=== PATIENT | male | born 1960 | race Caucasian/White ===

== ENCOUNTER 2023-01-17 12:13 | Observation (INO) | payer SELFPAY ==
[2023-01-17 12:41] LABS: #Eosinphils 0.1 thou/uL (0.0-0.7); #Lymphocytes 1.5 thou/uL (1.20-3.40); #Monocytes 0.5 thou/uL (0.11-0.59); #Neutrophils 8.5 thou/uL (1.40-6.50); %Basophils 0.4 % (0.0-1.0); %Eosinophils 0.8 % (0.0-10.0); %Lymphocytes 14.5 % (21.0-51.0); %Monocytes 4.3 % (0.0-10.0); %Neutrophils 80.1 % (42.0-75.0); Hemoglobin 13.7 g/dL (14.0-18.0); Mean Corpuscular Volume 97.1 fl (78.0-98.0); Mean Platelet Volume 7.4 fL (7.4-10.4); Platelet Count 247 10x3/uL (130-400); RBC Distribution Width 11.3 % (11.5-14.5); Red Blood Cell (RBC) Count 4.04 mill/uL (4.70-6.10); White Blood Cell (WBC) Count 10.5 10x3/uL (4.8-10.8)
[2023-01-17 13:04] LABS: ALT (SGPT) 25 U/L (8-55); AST (SGOT) 24 U/L (5-34); Albumin 4.2 g/dL (3.4-4.8); Alkaline Phosphatase 70 U/L (40-110); Anion Gap 12 mmol/L (10-20); BUN (Urea Nitrogen) 19 mg/dL (8.4-25.7); Bilirubin, Total 0.3 mg/dL (0.2-1.2); Calc. Creatinine Clearance 0 mL/min (70-130); Calcium 9.4 mg/dL (7.8-10.44); Carbon Dioxide 26 mmol/L (23-31); Chloride 102 mmol/L (98-107); Estimated GFR 86; Globulin 3.3 g/dL (2.4-3.5); Glucose 110 mg/dL (80-115); Potassium 4.3 mmol/L (3.5-5.1); Protein, Total 7.5 g/dL (5.8-8.1); Sodium 136 mmol/L (136-145)
[2023-01-17 14:12] LABS: Acetaminophen Less than 10.0 mcg/mL (10.0-30.0); Alcohol Less than 10 mg/dL (Less than 10); CK (CPK) 87 U/L (30-200); Lipase 52 U/L (8-78); Salicylate Less than 8.0 mg/dL (15.0-30.0)
[2023-01-17] MEDS ORDERED: Aspirin Chewable 81 MG TAB ONE (14:24)
[2023-01-17] MEDS ORDERED: Ondansetron PF 4 MG/2 ML Vial IVP PRN (14:44)
[2023-01-17] MEDS ORDERED: Ondansetron ODT 4 MG TAB PO PRN (14:44)
[2023-01-17 16:35] VITALS: BMI 26.3
[2023-01-17] MEDS ORDERED: CEFAZOLIN 1 GM VIAL ONE (17:19)
[2023-01-17] MEDS ORDERED: Gentamicin 80 MG/2 ML VIAL ONE (17:19)
[2023-01-17] MEDS ORDERED: Lidocaine 1% (PF) 30 ML VIAL ONE (17:19)
[2023-01-17 17:56] LABS: Troponin I Less than 0.010 ng/mL (< 0.028)
[2023-01-17] MEDS ORDERED: Midazolam HCl 2 mg/2 ml Vial ONE (18:03)
[2023-01-17] MEDS ORDERED: FENTANYL 50 MCG/ML 1 ML VIAL ONE (18:03)
[2023-01-17 21:35] LABS: Troponin I Less than 0.010 ng/mL (< 0.028)
[2023-01-18] MEDS: Acetaminophen 325 MG TAB PO PRN ×2 (03:11→08:16)
[2023-01-18 05:19] LABS: #Eosinphils 0.2 thou/uL (0.0-0.7); #Lymphocytes 1.8 thou/uL (1.20-3.40); #Monocytes 0.8 thou/uL (0.11-0.59); #Neutrophils 7.5 thou/uL (1.40-6.50); %Basophils 0.4 % (0.0-1.0); %Eosinophils 2.3 % (0.0-10.0); %Lymphocytes 17.6 % (21.0-51.0); %Monocytes 7.5 % (0.0-10.0); %Neutrophils 72.2 % (42.0-75.0); Hemoglobin 12.1 g/dL (14.0-18.0); Mean Corpuscular HGB CONC 34.1 g/dL (32.0-36.0); Mean Corpuscular Hemoglobin 33.2 pg (27.0-31.0); Mean Corpuscular Volume 97.5 fl (78.0-98.0); Mean Platelet Volume 7.7 fL (7.4-10.4); Platelet Count 226 10x3/uL (130-400); RBC Distribution Width 11.1 % (11.5-14.5); Red Blood Cell (RBC) Count 3.65 mill/uL (4.70-6.10); White Blood Cell (WBC) Count 10.4 10x3/uL (4.8-10.8)
[2023-01-18 05:37] LABS: Anion Gap 9 mmol/L (10-20); BUN (Urea Nitrogen) 18 mg/dL (8.4-25.7); Calc. Creatinine Clearance 107 mL/min (70-130); Calcium 8.8 mg/dL (7.8-10.44); Carbon Dioxide 27 mmol/L (23-31); Chloride 107 mmol/L (98-107); Estimated GFR 93; Glucose 96 mg/dL (80-115); Sodium 139 mmol/L (136-145)
[2023-01-18 08:07] VITALS: BP 112/73; TEMP 98.6
== END 2023-01-18 10:56 | disposition home or self-care (01) ==
LOC: ERS 12:13 → 2SW 16:20
PROVIDERS: ADMIT Internal Medicine; ATTEND Internal Medicine
PROC: 0JH606Z Insertion of Pacemaker, Dual Chamber into Chest Subcutaneous Tissue and Fascia, Open Approach (ICD-10-PCS; principal; 2023-01-18)
PROC: 02H63JZ Insertion of Pacemaker Lead into Right Atrium, Percutaneous Approach (ICD-10-PCS; 2023-01-18)
PROC: 02HK3JZ Insertion of Pacemaker Lead into Right Ventricle, Percutaneous Approach (ICD-10-PCS; 2023-01-18)
DX: R00.1 Bradycardia, unspecified (principal); I49.5 Sick sinus syndrome; R42 Dizziness and giddiness; I10 Essential (primary) hypertension; F17.210 Nicotine dependence, cigarettes, uncomplicated; R55 Syncope and collapse; F15.10 Other stimulant abuse, uncomplicated; I07.1 Rheumatic tricuspid insufficiency; F03.90 Unspecified dementia, unspecified severity, without behavioral disturbance, psychotic disturbance, mood disturbance, and anxiety; Z79.899 Other long term (current) drug therapy
CPT/HCPCS: 33208; 36415; 70450; 71045; 80048; 80053; 80307; 82140; 82550; 83690; 83735; 83880; 84146; 84443; 84484; 85025; 93005; 93306; G0378; J0690; J1580; J2001; J2250; J3010

== ENCOUNTER 2023-05-05 09:04 | Emergency (ER) | payer SELFPAY ==
[2023-05-05 09:54] LABS: #Basophils 0.1 thou/uL (0.0-0.2); #Eosinphils 0.3 thou/uL (0.0-0.7); #Monocytes 0.7 thou/uL (0.11-0.59); #Neutrophils 6.4 thou/uL (1.40-6.50); %Basophils 0.5 % (0.0-1.0); %Eosinophils 3.1 % (0.0-10.0); %Lymphocytes 23.1 % (21.0-51.0); %Monocytes 7.2 % (0.0-10.0); %Neutrophils 65.8 % (42.0-75.0); Hemoglobin 14.3 g/dL (14.0-18.0); Mean Corpuscular HGB CONC 34.7 g/dL (32.0-36.0); Mean Corpuscular Hemoglobin 31.2 pg (27.0-31.0); Mean Corpuscular Volume 89.8 fl (78.0-98.0); Mean Platelet Volume 9.7 fL (7.4-10.4); Platelet Count 244 10x3/uL (130-400); RBC Distribution Width 12.6 % (11.5-14.5); Red Blood Cell (RBC) Count 4.59 mill/uL (4.70-6.10); White Blood Cell (WBC) Count 9.8 10x3/uL (4.8-10.8)
[2023-05-05 10:25] LABS: ALT (SGPT) 27 U/L (8-55); AST (SGOT) 20 U/L (5-34); Albumin 4.3 g/dL (3.4-4.8); Alkaline Phosphatase 93 U/L (40-110); Anion Gap 14 mmol/L (10-20); BUN (Urea Nitrogen) 11 mg/dL (8.4-25.7); Bilirubin, Total 0.6 mg/dL (0.2-1.2); CK (CPK) 80 U/L (30-200); Calc. Creatinine Clearance 0 mL/min (70-130); Calcium 9.6 mg/dL (7.8-10.44); Carbon Dioxide 24 mmol/L (23-31); Chloride 104 mmol/L (98-107); Estimated GFR 97; Glucose 98 mg/dL (80-115); Lipase 38 U/L (8-78); Potassium 4.6 mmol/L (3.5-5.1); Protein, Total 7.3 g/dL (5.8-8.1); Sodium 137 mmol/L (136-145)
[2023-05-05] MEDS ORDERED: Iopamidol-370 76% 500 ML MDV (1 ML CHARGE) ONE (10:46)
[2023-05-05] MEDS ORDERED: Ketorolac Tromethamine 30 MG/ML VIAL ONE (10:57)
[2023-05-05 12:42] LABS: Bacteria/HPF None Seen HPF (None Seen); Bilirubin Negative (Negative); Blood, Urine Negative (Negative); CAUTI Indications for Culture Pelvic or flank pain; Clarity Clear (Clear); Glucose, Urine (Dipstick) Normal (Negative); Ketone, Urine Negative (Negative); Leukocyte Negative Leu/uL (Negative); Nitrite Negative (Negative); Protein, Urine (Dipstick) Negative (Neg-Trace); RBC/HPF 0-3 HPF (0-3); Specific Gravity, Urine 1.048 (1.002-1.036); Squamous Epithelial None Seen HPF (0-3); Urobilinogen Normal mg/dL (Less than 2); WBC/HPF None Seen HPF (0-3); pH, Urine 6.5 (5.0-9.0)
[2023-05-05 12:44] LABS: Urine Culture Reflex No No
[2023-05-05] MEDS ORDERED: fentaNYL 50 mcg/mL 1 mL Vial ONE (13:30)
== END 2023-05-05 13:05 | disposition home or self-care (01) ==
LOC: ERS 09:04
DX: K57.90 Diverticulosis of intestine, part unspecified, without perforation or abscess without bleeding (principal); I10 Essential (primary) hypertension; E78.5 Hyperlipidemia, unspecified; F17.210 Nicotine dependence, cigarettes, uncomplicated; Z79.899 Other long term (current) drug therapy
CPT/HCPCS: 36415; 74177; 80053; 81001; 82550; 83690; 84484; 85025; 93005; 96374; J1885; J3010; Q9967